=== PATIENT | male | born 1975 | race Caucasian/White ===

== ENCOUNTER 2016-03-22 07:01 | Emergency (ER) | payer OTHER ==
--- NOTE | 2016-03-22 07:32 | ED DYSPNEA/ASTHMA COMPLAINT ---
History of Present Illness General Chief Complaint: Dyspnea (COPD, CHF, Other) Stated Complaint: "I AM HAVING TROUBLE BREATHING" Source: patient, family Exam Limitations: no limitations Vital Signs & Intake/Output Vital Signs & Intake/Output Vital Signs Date Time Temp Pulse Resp B/P Pulse O2 O2 Flow FiO2 Ox Delivery Rate 03/22 0747 96 03/22 0738 Room Air Room Air 03/22 0705 97.6 75 20 157/80 97 Room Air Allergies Coded Allergies: Penicillins (Mild, HIVES 03/22/16) Reconcile Medications No Known Home Medications Triage Note: PT PRESENTS TO ER C/O OF RUNNY NOSE, CHEST CONGESTION, AND A NON PRODUCTIVE COUGH SINCE YESTERDAY. Triage Nurses Notes Reviewed? yes HPI: Patient presents for evaluation of sudden onset of dyspnea that began at 1:00 this morning. Patient describes the symptoms as constant but fluctuating in intensity. It becomes severe at times. The patient states that he took some sort of medication to help with nasal congestion that he has been experiencing recently. He also admits to smoking 2 cigars per day. Past History Travel History Traveled to [place] past 21 day No Medical History Any Pertinent Medical History? see below for history Neurological: NONE EENT: NONE Cardiovascular: NONE Respiratory: NONE Gastrointestinal: NONE Hepatic: NONE Renal: NONE Musculoskeletal: NONE Psychiatric: NONE Endocrine: NONE Surgical History Surgical History: non-contributory Psychosocial History What is your primary language Greenlandic Tobacco Use: Current Daily Use Daily Tobacco Use Amount/Type: =< 4 Cigarettes daily Family History Hx Contributory? No Review of Systems Review of Systems Constitutional: Reports: no symptoms. EENTM: Reports: no symptoms. Respiratory: Reports: see HPI. Cardiovascular: Reports: no symptoms. GI: Reports: no symptoms. Genitourinary: Reports: no symptoms. Musculoskeletal: Reports: no symptoms. Skin: Reports: no symptoms. Neurological/Psychological: Reports: no symptoms. Hematologic/Endocrine: Reports: no symptoms. Immunologic/Allergic: Reports: no symptoms. All Other Systems: Reviewed and Negative Physical Exam Physical Exam Respiratory: SEE BELOW Comments: Gen.: Well-nourished, well-developed, no acute respiratory distress. Head: Normocephalic, atraumatic. Eyes: Normal inspection bilaterally Ears: Normal inspection bilaterally Nose: Normal inspection Throat/mouth : Moist mucosa Neck: Supple, full range of motion, no goiter Heart: Regular rate and rhythm, no murmurs rubs or gallops Lungs: Clear to auscultation bilaterally with normal air entry Chest: Nontender Back: Normal range of motion Abdomen: Soft, nontender, nondistended, normal bowel sounds Extremities: Normal range of motion grossly, equal radial pulses, no cyanosis clubbing or edema Neurologic: Cranial nerves grossly intact, speech is clear Skin: warm and dry Psychiatric: Calm, cooperative, no apparent delusions or hallucinations Core Measures ACS in differential dx? No Severe Sepsis Present: No Septic Shock Present: No Progress Differential Diagnosis: asthma, bronchitis, pneumonia, ANXIETY Plan of Care: Current Medications Sig/Sean Start time Last Medication Dose Stop Time Status Admin Albuterol Sulfate 3 ML ONCE ONE 03/22 744 UNVr (Proventil) 03/22 745 Ipratropium [place] 2.5 ML ONCE ONE 03/22 744 UNVr (Atrovent) 03/22 745 Initial ED EKG: none Comments: Despite the fact that the patient was found lying on the stretcher with arms folded behind his head, during my history and physical he suddenly sat up and stated that he was having severe trouble breathing. I couldn't perceive no increase in his respiratory rate, nasal flaring or any other signs of respiratory distress. The patient's mother states that the patient's son has a history of asthma. I will order a bronchodilator and reevaluate. 03/22/2016 8:37:28 AM Kal is feeling better after a DuoNeb treatment. Air entry has improved but there is still no wheezing rales or rhonchi. Underlying bronchospastic lung disease and in this case likely due to a viral syndrome. Departure Departure Disposition: HOME OR SELF CARE Condition: Stable Clinical Impression Primary Impression: Viral URI Secondary Impressions: Bronchospasm Referrals: PATIENT HAS NO PRIMARY CARE DR (PCP/Family) Additional Instructions: Albuterol inhaler as needed for trouble breathing. Bromfed DM as needed for cold symptoms. Follow-up with your primary care physician in 5-7 days if not improved. Return if any concerns or sudden worsening. Thank you for choosing the [facility] Emergency Department for your care. It was a pleasure to serve you today. Checo Calzada M.D. [facility] Departure Forms: Customer Survey General Discharge Information Prescriptions: Current Visit Scripts Brompheniramine/Pseudoephed/Dm (Bromfed Dm Cough Syrup) 10 ML PO Q6P PRN COUGH/ COLD SYMPTOMS #240 ML Albuterol Sulfate (Proair Hfa) 2-4 INH INH Q6P PRN ASTHMA #1 INHAL Critical Care Note Critical Care Note Critical Care Time: non-applicable
[2016-03-22] MEDS ORDERED: PROAIR HFA8.5 GM INH ×2 (08:40→09:19)
[2016-03-22] MEDS ORDERED: BROMFED DM COU118 M1 PO ×2 (08:40→09:19)
[2016-03-22 09:26] VITALS: BP 154/70
== END 2016-03-22 09:27 ==
LOC: ERH 07:01
DX: J06.9 Acute upper respiratory infection, unspecified (principal); J98.01 Acute bronchospasm; Z72.0 Tobacco use
CPT/HCPCS: 1263

== ENCOUNTER 2017-07-04 17:59 | Emergency (ER) | payer OTHER ==
[~2017-07-04] VITALS: Ht 198.1 cm; Wt 131.5 kg
[~2017-07-04 17:59] MED LIST: BROMFED DM COU118 M1 PO; PROAIR HFA8.5 GM INH
[2017-07-04 18:03] VITALS: BP 145/84
--- NOTE | 2017-07-04 18:06 | ED THROAT/DENTAL COMPLAINT ---
History of Present Illness General Chief Complaint: General Adult Stated Complaint: PT THINKS HE HAS STREP THROAT Source: patient Exam Limitations: no limitations Vital Signs & Intake/Output Vital Signs & Intake/Output ED Intake and Output 07/05 0000 07/04 1200 Intake Total 0 Output Total Balance 0 Intake, Oral 0 Patient 290 lb Weight Weight Reported by Patient Measurement Method Allergies Coded Allergies: Penicillins (Mild, HIVES 03/22/16) Reconcile Medications Albuterol Sulfate (Proair Hfa) 90 MCG HFA.AER.AD 2-4 INH INH Q6P PRN ASTHMA Brompheniramine/Pseudoephed/Dm (Bromfed Dm Cough Syrup) 2 MG-30 MG-10 MG/5 ML SYRUP 10 ML PO Q6P PRN COLD SYMPTOMS Clindamycin HCl (Cleocin HCl) 300 MG CAPSULE 1 CAP PO TID pharyngitis Indomethacin 50 MG CAPSULE 1 CAP PO TID sore throat with food Triage Note: PT STATES HE THINKS HE HAS STREP THROAT. SORE THROAT FOR THE PAST DAY. PT STATES HE HAS NEVER HAD STREP BUT HIS SON JUST HAD IT ABOUT 1 MONTH AGO. Triage Nurses Notes Reviewed? yes Onset: Abrupt Duration: day(s): (1), constant, continues in ED Timing: single episode today Injury Environment: home Severity: moderate, severe Severity Numbers: 8 No Modifying Factors: none Associated Symptoms: cough HPI: 41-year-old male with no past medical history presents for evaluation of sore throat. Patient reports that symptoms started today be getting worse. Pain is worse with swallowing but is tolerating fluids. No drooling. He does report associated cough no fevers congestion or rhinorrhea. No sick contacts. He does not smoke. No other medical problems. (Kurtis Burnham) Past History Travel History Traveled to [place] past 21 day No Medical History Any Pertinent Medical History? see below for history Neurological: NONE EENT: NONE Cardiovascular: NONE Respiratory: NONE Gastrointestinal: NONE Hepatic: NONE Renal: NONE Musculoskeletal: NONE Psychiatric: NONE Endocrine: NONE Surgical History Surgical History: non-contributory Psychosocial History What is your primary language Upper Sorbian Tobacco Use: Current Not Daily Daily Tobacco Use Amount/Type: =< 4 Cigarettes daily ETOH Use: occasional use Illicit Drug Use: denies illicit drug use Family History Hx Contributory? No (Kurtis Burnham) Review of Systems Review of Systems Constitutional: Reports: no symptoms. EENTM: Reports: throat pain, throat swelling. Respiratory: Reports: no symptoms. Cardiovascular: Reports: no symptoms. GI: Reports: no symptoms. Genitourinary: Reports: no symptoms. Musculoskeletal: Reports: no symptoms. Skin: Reports: no symptoms. Neurological/Psychological: Reports: no symptoms. Hematologic/Endocrine: Reports: no symptoms. Immunologic/Allergic: Reports: no symptoms. All Other Systems: Reviewed and Negative (Kurtis Burnham) Physical Exam Physical Exam General Appearance: well developed/nourished, no apparent distress, alert, awake Head: atraumatic, normal appearance Eyes: Bilateral: normal appearance, PERRL, EOMI. Ears: Bilateral: canal normal, Tympanic normal. Nose: normal inspection Mouth/Throat: normal mouth inspection, tonsillar exudate, tonsillar swelling, tonsils 3+ bilaterally with erythema and exudate. Patient is healing secretions. No uvular deviation Neck: normal inspection, supple, full range of motion, lymphadenopathy (R), lymphadenopathy (L) Cardiovascular/Respiratory: normal breath sounds, normal peripheral pulses, regular rate/rhythm, no respiratory distress Back: normal inspection, normal range of motion, no vertebral tenderness Neurologic/Psych: no motor/sensory deficits, awake, alert, oriented x 3, normal gait Skin: intact, normal color, warm/dry Core Measures ACS in differential dx? No Sepsis Present: No Sepsis Focused Exam Completed? No (Kurtis Burnham) Progress Differential Diagnosis: epiglottitis, Ludwigs angina, odontogenic abscess, noelle- tonsillar abscess, stomatitis/gingivitis, strep pharyngitis Plan of Care: Current Medications Sig/Sean Start time Last Medication Dose Stop Time Status Admin Ibuprofen 800 MG ONCE ONE 07/04 1814 AC (Motrin) 07/05 1815 Patient seen and evaluated. He has clinical signs and symptoms of strep throat. He is tolerating fluids. He is afebrile vital signs are stable. Patient is medicated with ibuprofen here. He'll be covered with Clinda due to penicillin allergy. Rest and fluids Tylenol ibuprofen warm salt gargles throat lozenges or sprays to [place] throat. Follow-up with primary care doctor discussed return precautions patient agrees the plan. (Kurtis Burnham) Departure Departure Disposition: HOME OR SELF CARE Condition: Stable Clinical Impression Primary Impression: Acute bacterial pharyngitis Referrals: Patient Has No Primary Care Dr Additional Instructions: Take antibiotics as diretced for full course. tylenol/ibuprofen as needed for pain. monitor your symptoms. if unable to tolerATe fluids, fever, or troubel breathing or any other concerns return immeidatlty. Departure Forms: Customer Survey General Discharge Information Prescriptions: Current Visit Scripts Indomethacin 1 CAP PO TID #12 CAP with food Clindamycin HCl (Cleocin HCl) 1 CAP PO TID #30 CAP (Kurtis Burnham) PA/COMPANY PILOT Co-Sign Statement Statement: ED Attending supervision documentation- I saw and evaluated the patient. I have also reviewed all the pertinent lab results and diagnostic results. I agree with the findings and the plan of care as documented in the PA's/COMPANY PILOT's documentation. X I have reviewed the ED Record and agree with the PA's/COMPANY PILOT's documentation. [] Additions or exceptions (if any) to the PAs/COMPANY PILOT's note and plan are summarized below: [] (Elise CHRISTOPHER,Mehdi)
[2017-07-04] MEDS ORDERED: CLEOCIN HCL300 M1 PO (18:08)
[2017-07-05] MEDS ORDERED: INDOMETHACIN50 M1 PO (15:46)
== END 2017-07-04 18:17 ==
LOC: ERH 17:59
DX: J02.9 Acute pharyngitis, unspecified (principal); F17.210 Nicotine dependence, cigarettes, uncomplicated

== ENCOUNTER 2017-10-31 18:36 | Emergency (ER) | payer OTHER ==
[~2017-10-31] VITALS: Ht 188 cm; Wt 117.9 kg
[~2017-10-31 18:36] MED LIST changes: +CLEOCIN HCL300 M1 PO; +INDOMETHACIN50 M1 PO
[2017-10-31 19:15] VITALS: BP 145/82
--- NOTE | 2017-10-31 19:36 | ED UPPER/LOWER EXTREMITY COMPL ---
History of Present Illness General Chief Complaint: Shoulder Injury Stated Complaint: LT SHUOLDER PAIN Source: patient, family, old records, EMS, friend, freelance interpreter/translator, police, PCP, W10 Exam Limitations: no limitations Vital Signs & Intake/Output Vital Signs & Intake/Output Vital Signs Date Time Temp Pulse Resp B/P B/P Pulse O2 O2 Flow FiO2 Mean Ox Delivery Rate 10/31 1915 96.4 91 18 145/82 97 Room Air Allergies Coded Allergies: Penicillins (Mild, HIVES 03/22/16) Reconcile Medications Albuterol Sulfate (Proair Hfa) 90 MCG HFA.AER.AD 2-4 INH INH Q6P PRN ASTHMA Brompheniramine/Pseudoephed/Dm (Bromfed Dm Cough Syrup) 2 MG-30 MG-10 MG/5 ML SYRUP 10 ML PO Q6P PRN COLD SYMPTOMS Clindamycin HCl (Cleocin HCl) 300 MG CAPSULE 1 CAP PO TID pharyngitis Indomethacin 50 MG CAPSULE 1 CAP PO TID sore throat with food Oxycodone HCl/Acetaminophen (Percocet 5-325 MG Tablet) 5 MG-325 MG TABLET 1-2 TAB PO BID pain Triage Note: PT TO TRIAGE C/O L SHOULDER PAIN WITH VERY LIMITED ROM X1 DAY. DENIES NUMBNESS/TINGLING IN ARM. DENIES FALL/INJURY. 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 EVAL'D BY DAWNA CHO. Triage Nurses Notes Reviewed? yes Onset: Abrupt Duration: day(s): (1), constant, continues in ED Timing: recent history Severity: moderate, severe Pain/Injury Location: Left: Shoulder. HPI: 42-year-old male comes into the emergency room for further evaluation of left shoulder pain. Patient reports she woke up with shoulder pain this morning. Denies any chest pain shortness of breath. Patient reports that he cannot lift his arm secondary to pain as well as the fact that he needs to use his other arm to lift it. He denies any falls or trauma but reports that he does do a lot of heavy lifting on a regular basis cannot recall any particular injury. Pain is sharp. Continuous. (Parish TONEY,Esau) Past History Travel History Traveled to [place] past 21 day No Medical History Any Pertinent Medical History? see below for history Neurological: NONE EENT: NONE Cardiovascular: NONE Respiratory: NONE Gastrointestinal: NONE Hepatic: NONE Renal: NONE Musculoskeletal: NONE Psychiatric: NONE Endocrine: NONE Surgical History Surgical History: non-contributory Psychosocial History What is your primary language Burundian Tobacco Use: Current Daily Use Daily Tobacco Use Amount/Type: => 5 Cigarettes daily Family History Hx Contributory? No (Esau Taylor) Review of Systems Review of Systems Constitutional: Reports: no symptoms. EENTM: Reports: no symptoms. Respiratory: Reports: no symptoms. Cardiovascular: Reports: no symptoms. Gastrointestinal/Abdominal: Reports: no symptoms. Genitourinary: Reports: no symptoms. Musculoskeletal: Reports: see HPI. Skin: Reports: no symptoms. Neurological/Psychological: Reports: no symptoms. Hematologic/Endocrine: Reports: no symptoms. Immunological: Reports: no symptoms. All Other Systems: Reviewed and Negative (Esau Taylor) Physical Exam Physical Exam General Appearance: well developed/nourished, mild distress Head: atraumatic Eyes: Bilateral: normal appearance. Ears, Nose, Throat: normal ENT inspection, hearing grossly normal Neck: normal inspection Cardiovascular/Respiratory: no respiratory distress Back: normal inspection Shoulder Left: soft tissue tenderness over left deltoid, limited range of motion , positive empty can test, radial pulse intact, personal lines agent strength intact, Neurologic/Tendon: normal sensation, normal motor functions, responds to pain, no evidence tendon injury, no pulse deficit Skin: intact, normal color, warm/dry Lymphatic: no anterior cervical yaz (Esau Taylor) Progress Differential Diagnosis: dislocation, fracture, septic arthritis, sprain, tendon injury, rotator cuff tendinitis/tear Plan of Care: Orders Procedure Date/time Status Durable Medical Equipment 10/31 2046 Active Diagnostic Imaging: Viewed by Me: Radiology Read. Discussed w/RAD: Radiology Read. Radiology Impression: PATIENT: ZOHREH SAEZ PRESENT AGE: 42 PATIENT ACCOUNT NO: [id number] : 74 LOCATION: [facility] ORDERING PHYSICIAN: Esau TONEY SERVICE DATE: 10/31/17 EXAM TYPE: RAD - XRY-SHOULDER COMPLETE-LEFT EXAMINATION: XR SHOULDER, LEFT CLINICAL INFORMATION: Left shoulder pain. COMPARISON: None TECHNIQUE: Four views of the left shoulder. FINDINGS: No fracture. No dislocation. The glenohumeral joint is normal. There is mild spurring of the distal clavicle and acromion at the acromioclavicular joint without erosions. There is no soft tissue calcification. IMPRESSION: Mild degenerative change of the acromioclavicular joint. Normal glenohumeral joint. DICTATED BY: Petar Ellington MD DATE/TIME DICTATED:10/31/172017 HOTEL CONTROLLER :KLAUS DATE/TIME TRANSCRIBED:10/31/172017 CONFIDENTIAL, DO NOT COPY WITHOUT APPROPRIATE AUTHORIZATION. <Electronically signed in Other Vendor System> SIGNED BY: Petar Ellington MD 10/31/172022 (Esau Taylor) Departure Departure Disposition: HOME OR SELF CARE Condition: Stable Clinical Impression Primary Impression: Injury of left rotator cuff Referrals: Patient Has No Primary Care Dr (PCP/Family) Sarkis Luna MD Additional Instructions: Take Percocet for pain. Follow-up with orthopedic doctor. Return if any concerns worsening symptoms. Please go over all results of today's visit with your primary care doctor. Contact your primary care doctor to let them know you were here in the emergency room. There may be nonspecific findings which may not be related to your visit today here in the emergency room but may require further evaluation and chronic monitoring by your primary care doctor. If you had a laceration today the chance of foreign body always remains. You should follow-up with your primary care doctor for recheck in 3-5 days for a wound check. If you had an x-ray done there is a chance that a fracture could have been missed on initial read and you should follow-up with your primary care doctor for repeat x-rays if symptoms persist. If your blood pressure was elevated here in the emergency room please have rechecked by [facility] primary care doctor within the next 48. If you were prescribed a narcotic here in the emergency room or any type of controlled substances you're not allowed to drive while taking this medication or operate any type of heavy machinery. Narcotics can make you feel lightheaded dizziness nausea and can cause constipation. You may need to rock picker a stool softener. Thank you for choosing [facility] emergency room. Please return to the emergency room immediately if you have any other concerns worsening of symptoms. Departure Forms: Customer Survey General Discharge Information Prescriptions: Current Visit Scripts Oxycodone HCl/Acetaminophen (Percocet 5-325 MG Tablet) 1-2 TAB PO BID #15 TAB Comments 10/31/2017 9:00:14 PM Injury is concerning for a rotator cuff tear. He was referred to orthopedic for outpatient MRI and physical therapy. (Esau Taylor) PA/FORESTRY PATROLMAN Co-Sign Statement Statement: ED Attending supervision documentation- [] I saw and evaluated the patient. I have also reviewed all the pertinent lab results and diagnostic results. I agree with the findings and the plan of care as documented in the PA's/FORESTRY PATROLMAN's documentation. [X] I have reviewed the ED Record and agree with the PA's/FORESTRY PATROLMAN's documentation. [] Additions or exceptions (if any) to the PAs/FORESTRY PATROLMAN's note and plan are summarized below: [] (Arvind CHRISTOPHER,Kendrick Correia) Procedures Splinting Location: left shoulder Manual Alignment Performed: No Pre-Made Type: shoulder mobilizer Splint Applied By: splint applied by me Pre-Proc Neuro Vasc Exam: normal Post-Proc Neuro Vasc Exam: normal (Esau Taylor)
--- NOTE | 2017-10-31 20:23 | RADIOLOGY REPORT ---
EXAMINATION: XR SHOULDER, LEFT CLINICAL INFORMATION: Left shoulder pain. COMPARISON: None TECHNIQUE: Four views of the left shoulder. FINDINGS: No fracture. No dislocation. The glenohumeral joint is normal. There is mild spurring of the distal clavicle and acromion at the acromioclavicular joint without erosions. There is no soft tissue calcification. IMPRESSION: Mild degenerative change of the acromioclavicular joint. Normal glenohumeral joint.
[2017-10-31] MEDS ORDERED: PERCOCET 5-3251 EACH PO (20:46)
== END 2017-10-31 20:55 ==
LOC: ERH 18:36
DX: S46.002A Unspecified injury of muscle(s) and tendon(s) of the rotator cuff of left shoulder, initial encounter (principal); X58.XXXA Exposure to other specified factors, initial encounter; Y92.9 Unspecified place or not applicable; Y93.9 Activity, unspecified; F17.210 Nicotine dependence, cigarettes, uncomplicated
CPT/HCPCS: 73030-LT